=== PATIENT | female | born 1970 | race Caucasian/White ===

== ENCOUNTER 2018-07-25 11:45 | Observation (INO) ==
[~2018-07-25 11:45] MED LIST: LIDOCAINE W/ SODIUM BICARB 0.5 ML SYR ONE; LIDOCAINE W/ SODIUM BICARB 0.5 ML SYR SUBD PRN; Lactated Ringers 1,000 ML PRIMARY IV ONE; Nasal Sanitizer POPSWAB ampule 3 AMP (Nozin) PREOP DOSE ENOS SCH; ceFAZolin Inj 2gm (Premix) 2 GM/50 ML BAG IV ONE
[2018-07-25 12:20] LABS: URINE SPECIFIC GRAVITY - MAN 1.035
[2018-07-25] MEDS: Lactated Ringers 1,000 ML PRIMARY IV SCH ×3 (12:45→17:56)
[2018-07-25] MEDS ORDERED: LIDOCAINE 2%/ EPI 1:200,000 - 20 ML VIAL ONE (13:38)
[2018-07-25] MEDS ORDERED: MIDAZOLAM HCL 2 MG/2 ML VIAL ONE ×2 (13:39→13:59)
[2018-07-25] MEDS ORDERED: fentaNYL Inj 100 MCG/2 ML VIAL ONE ×2 (13:39→14:49)
[2018-07-25] MEDS ORDERED: BUPIVACAINE 0.5% W/ EPI - 10 ML VIAL ONE (13:39)
[2018-07-25] MEDS ORDERED: BACITRACIN 50,000 UNIT VIAL IRRIG ONE (13:44)
[2018-07-25] MEDS ORDERED: Sodium Chloride 0.9% vial 10 ML ONE (13:44)
[2018-07-25] MEDS ORDERED: ONDANSETRON 4 MG/2 ML VIAL IVP PRN (13:58)
[2018-07-25] MEDS ORDERED: KETOROLAC 15 MG/1 ML VIAL IVP PRN (13:58)
--- NOTE | 2018-07-25 14:19 | ORTHO.OP ---
- - -: See Dictated Operative Report Procedure Codes - Upper Extremity Procedures Primary Wrist/Hand/Elbow Procedure Code: Other CPT Code(s) (cpt 65493, soumya URBAN assisted)
[2018-07-25] MEDS ORDERED: PROPOFOL 10 MG/1 ML (200 MG/20 ML) VIAL IV ONE (14:21)
[2018-07-25] MEDS ORDERED: MIDAZOLAM HCL 2 MG/2 ML VIAL IVP ONE (14:44)
[2018-07-25] MEDS ORDERED: BUPivacaine Liposome/PF (Exparel) Inj 20ml vial INFIL ONE (14:48)
[2018-07-25] MEDS ORDERED: BUPivacaine Inj 0.25% PF - 10ml vial ONE (14:49)
[2018-07-25] MEDS ORDERED: Propofol 1,000 MG/100 ML VIAL IV ONE (14:53)
[2018-07-25] MEDS ORDERED: KETAMINE HCL 100 MG/2 ML SYRINGE IV ONE (15:01)
--- NOTE | 2018-07-25 15:52 | CRNA.PROCE ---
Nerve Block Documentation - - Safety Measures: Time Out Taken, Site Verified - - Type of Nerve Block Used: Right Supraclavicular Block Position for Nerve Block: Supine Moniters Used During Block: EKG Oxygen Supplemented: Yes Sedation Used - Enter Amount in Comment Field [ANES.SEDAT]: Midazolam (mg): Yes (4), Fentanyl (mcg): Yes (100) Technique: Ultrasound Nerve Block Needle Used: EchoBright 50 mm Local Anesthetic - Enter Amt in Comment Field [ANES.LOCNB]: 0.5 % Bupivicaine with Epinephrine 1:200,000 (mL): Yes (15), 2 % Xylocaine with Epinephrine 1:200,000 (mL): Yes (15) - - PreOp Block : Time In: 14:05 PreOp Block : Time Out: 14:15 Anesthesia Time - Other Weight: 86.183 kg Height: 5 ft 4 in Body Mass Index (BMI): 32.5
[2018-07-25] MEDS ORDERED: Acetaminophen 1000mg Inj 1,000 MG/100 ML VIAL IV PRN (15:58)
--- NOTE | 2018-07-25 16:13 | CRNA.PROGR ---
Anesthesia Time - Procedure/Recovery Time Start Date: 07/25/18 End Date: 07/25/18 Anesthesia : Time In: 14:23 Anesthesia : Time Out: 16:09 Anesthesia : Total Time: 106 - Block Time PreOp Block : Time In: 14:05 PreOp Block : Time Out: 14:15 - Total Anesthesia Time Total Anesthesia Time (minutes): 106 - Other Weight: 86.183 kg Height: 5 ft 4 in Body Mass Index (BMI): 32.5 Physical Status: P1 Anesthesia Type: Axillary Block
--- NOTE | 2018-07-25 16:14 | CRNA.PROGR ---
Post Anesthesia Phase II - Post Anesthesia Phase II Patient Stable and Discharged To: Phase II Care Assumed By Surgeon: Yusef Ceballos MD Temperature: 97.0 F Pulse Rate: 84 Respiratory Rate: 12 Blood Pressure: 111/82 Pulse Ox: 96 Total Felicity Score at Discharge: 9 Post Anesthesia Discharge Criteria Met: Yes
[2018-07-25] MEDS: HYDROcodone-APAP 7.5 MG-325 MG TABLET PO PRN (20:03)
[2018-07-25] MEDS: HYDROmorphone 2 MG/1 ML IVP PRN ×2 (20:04→22:31)
[2018-07-26] MEDS: Lactated Ringers 1,000 ML PRIMARY IV SCH
[2018-07-26] MEDS: HYDROcodone-APAP 7.5 MG-325 MG TABLET PO PRN ×3 (00:13→08:30)
[2018-07-26] MEDS: HYDROmorphone 2 MG/1 ML IVP PRN (02:39)
[2018-07-26 07:46] VITALS: BP 108/73; RESP 18; TEMP 98.3; O2SAT 93
--- NOTE | 2018-07-30 16:03 | ORTHO.DC ---
Discharge Summary Admit Date: 07/25/18 Discharge Date: 07/26/18 Admitting Diagnosis: pain control after right wrist surgery Hospital Course: Patient admitted after surgery for pain control, was discharged home the following morning after obtaining adequate pain control on oral medications Discharge Medications: Discharge Medications albuterol sulfate HFA 90 mcg/actuation aerosol inhaler 2 puff INH Q4-6H PRN #8.5 g 07/14/18 [Rx] budesonide-formoterol HFA 160 mcg-4.5 mcg/actuation aerosol inhaler 2 puff INH BID 07/14/18 [History] HYDROcodone/APAP 7.5/325 Tab [[place] 7.5/325 Tab] 1 - 2 tab PO Q4H PRN #30 tab 07/25/18 [Rx] Follow-Up: NONE,NONE [Primary Care Provider] - As Needed Yusef Ceballos [STAFF PHYSICIAN] - 08/04/18 10:15 am Discharge Instructions Provided to Patient / Family: Wrist Fracture in Adults (DC) Exam - Vitals Vital Signs: Vital Signs Temperature 98.3 F Temperature Source Temporal Artery Scan Pulse Rate [Apical] 78 Pulse Rate [Pulse Oximeter] 75 Pulse Rate 75 Respiratory Rate 18 Blood Pressure [Left Arm] 108/73 Blood Pressure 130/89 Pulse Ox 93 Oxygen Flow Rate RA Oxygen Delivery Method Room Air Height 5 ft 4 in Weight 86.183 kg
== END 2018-07-26 09:48 | disposition home or self-care (01) ==
LOC: MED/SURG 11:45 → OR 11:45
PROVIDERS: ADMIT Orthopaedic Surgery; ATTEND Orthopaedic Surgery